=== PATIENT | male | born 1940 | race Caucasian/White ===

== ENCOUNTER 2018-03-04 19:03 | Inpatient (IN) | payer MEDICARE ==
[2018-03-04 21:20] LABS: Troponin I Less than 0.010 ng/mL (< 0.028)
[2018-03-04] MEDS ORDERED: Ondansetron HCl/PF 4 MG/2 ML Vial IVP PRN (22:06)
[2018-03-04] MEDS ORDERED: Ondansetron ODT 4 MG TAB SL PRN (22:06)
[2018-03-04] MEDS ORDERED: Acetaminophen 325 MG TAB PO PRN (22:06)
[2018-03-04 23:18] LABS: Troponin I Less than 0.010 ng/mL (< 0.028)
[2018-03-05] MEDS ORDERED: HumaLOG 300 UNITS/3 ML VIAL SC PRN ×2 (03:28)
[2018-03-05] MEDS ORDERED: Insulin Regular 300 UNITS/3 ML VIAL SC PRN (03:28)
[2018-03-05] MEDS ORDERED: Dextrose 5% in Water 1,000 ML IV PRN (03:28)
[2018-03-05] MEDS ORDERED: Dextrose 50% Abboject 50 ML SYRINGE SLOW IVP PRN (03:28)
[2018-03-05] MEDS ORDERED: Mag-Al 1200 mg/1200 mg/30 ML UDCUP PO PRN (03:29)
[2018-03-05] MEDS ORDERED: Acetaminophen 325 MG TAB PO PRN (03:29)
[2018-03-05] MEDS ORDERED: Senokot 8.6 MG TAB PO PRN (03:29)
[2018-03-05] MEDS ORDERED: traMADol HCl 50 MG TAB PO PRN (03:29)
[2018-03-05] MEDS ORDERED: Loratadine 10 MG TAB PO PRN (03:29)
[2018-03-05] MEDS ORDERED: cloNIDine 0.1 MG TAB PO PRN (03:29)
[2018-03-05] MEDS ORDERED: hydrALAZINE 20 MG/ML VIAL SLOW IVP PRN (03:29)
[2018-03-05] MEDS ORDERED: Benzonatate 100 MG CAP PO PRN (03:29)
[2018-03-05] MEDS ORDERED: Diabetic Tussin 200 MG/10 ML UDCUP PO PRN (03:29)
[2018-03-05] MEDS ORDERED: Calcium Carbonate 500 MG ChewTAB PO PRN (03:29)
[2018-03-05] MEDS ORDERED: Nitroglycerin 0.4 MG TAB (25 Tab Bottle) SL PRN (03:29)
[2018-03-05] MEDS ORDERED: Bisacodyl 5 MG TAB PO PRN (03:29)
[2018-03-05] MEDS ORDERED: Ondansetron HCl/PF 4 MG/2 ML Vial IVP PRN (03:29)
[2018-03-05] MEDS: Sodium Chloride 0.9% 1,000 ML IV SCH ×3 (03:55→21:12)
[2018-03-05] MEDS: cefTRIAXone\\ROCEPHIN 1 GM in Sodium Chloride 0.9% 100 ML IVPB SCH (04:02)
[2018-03-05] MEDS ORDERED: Pioglitazone HCl 15 MG TAB PO SCH (09:00)
[2018-03-05] MEDS: Aspirin 81 mg Enteric Coated Tablet PO SCH (09:52)
[2018-03-05] MEDS: Ferrous Gluconate 324 MG TAB PO SCH ×2 (09:52→21:11)
[2018-03-05] MEDS: Carvedilol 25 MG TAB PO SCH ×2 (09:53→21:11)
[2018-03-05] MEDS: Clopidogrel Bisulfate 75 MG TAB PO SCH (09:53)
[2018-03-05 13:39] LABS: Anion Gap 12 mmol/L (10-20); BUN (Urea Nitrogen) 19 mg/dL (8.4-25.7); Calc. Creatinine Clearance 43 mL/min (70-130); Calcium 8.3 mg/dL (7.8-10.44); Carbon Dioxide 23 mmol/L (23-31); Chloride 108 mmol/L (98-107); Estimated GFR-MDRD 40; Glucose 114 mg/dL (83-110); Sodium 139 mmol/L (136-145)
[2018-03-05 16:43] VITALS: BMI 31.3
--- NOTE | 2018-03-05 17:47 | HP ---
CHIEF COMPLAINT: General weakness, diarrhea. HISTORIAN: The patient and patient's daughter, reliable. HISTORY OF PRESENT ILLESS: This is a 77-year-old male who presented to [facility] via transfer from [facility] [address] with chief complaint of generalized weakness and diarrhea in the past 3 days. Per the patient, he had nonbloody diarrhea and had about 3 bouts of diarrhea. The patient also states that he had 1 episode of nonbloody vomitus. Per daughter, the patient was having subjective fevers as well and this prompted the ED visit. The patient denies any hematochezia, chest pain, palpitations, dizziness, dysuria. REVIEW OF SYSTEMS: Positive for diarrhea and vomiting; however, negative for all other ones stated in the HPI and documented. PAST MEDICAL HISTORY: The patient has past medical history of coronary artery disease, diabetes mellitus type 2, hyperlipidemia, hypertension. PAST SURGICAL HISTORY: Cardiac stents in 2016, hernia repair x6 and right shoulder repair. SOCIAL HISTORY: The patient denies alcohol use. The patient denies any illicit drug use. The patient denies any smoking history. FAMILY HISTORY: Patients mom and dad . ALLERGIES: No known drug allergies noted. PSYCH HISTORY: The patient does not have any psych history. MEDICATIONS: The patient takes, 1. Lasix 20 mg daily. 2. Lisinopril once a day 20 mg. 3. Plavix 75 mg once a day. 4. Trulicity 0.75 mg/0.5 mL. 5. Ferrous gluconate b.i.d. 6. Aspirin 81 mg daily. 7. Atorvastatin 40 mg daily. 8. Carvedilol 25 mg b.i.d. 9. Pantoprazole 40 mg b.i.d. 10. Pioglitazone 15 mg daily. PRIMARY CARE PHYSICIAN: The patient's PCP is Dr. German Richard. CODE STATUS: The patient is full code. PHYSICAL EXAMINATION: VITAL SIGNS: In the ED, the patient's vital signs were blood pressure was 125/ 56, pulse was 83, respiratory rate of 16, temperature of 99, O2 sat of 98 on 2 liters oxygen. On admission, the patient's blood pressure was 136/66, pulse of 93, respiratory rate of 18, temperature of 99.2, O2 sat of 96% on room air. GENERAL: The patient is lying in bed comfortably. He does not appear to be in any acute distress. The patient appears his stated age. HEENT: Normocephalic, atraumatic. Pupils are equally round and reactive to light. Extraocular movements are intact. No scleral icterus. Mucous membranes are moist. NECK: No JVD. Full range of motion. Trachea is midline. LUNGS: Clear to auscultation bilaterally. No wheezing, no rales, no rhonchi is appreciated. CARDIOVASCULAR: Positive S1, S2. Regular rate and rhythm. No murmurs, no rubs , no gallops appreciated. ABDOMEN: Soft, nontender, nondistended. Positive bowel sounds in all quadrants. No masses appreciated. EXTREMITIES: Upper extremities and lower extremities, the patient has 5/5 upper extremities strength and 5/5 lower extremities strength. The patient has SCDs attached to his lower extremities pulses bilaterally. NEUROLOGIC: Cranial nerves II-XII grossly intact. No focal neurologic deficits noted. SKIN: Warm, dry and intact. PSYCHIATRIC: Normal affect. LABORATORY DATA: Lactic acid is 1.5. Troponin is 0.010. WBC 7.9, hemoglobin is 11.6, hematocrit is 31.4, platelets of 117,000. Sodium is 139, potassium is 4.0, chloride is 108, bicarbonate 23, creatinine is 1.68, glucose is 114. Urinalysis positive for leukocyte esterase. ASSESSMENT AND PLAN: This is a 77-year-old male with multiple comorbidities being admitted for: 1. Diarrhea and vomiting, most likely secondary to viral gastritis. At this point, the patient states that his diarrhea has resolved. We have sent stool cultures to rule out Clostridium difficile. We will follow up on the cultures. We will continue IV fluids and we started antibiotics on the patient. 2. Urinary tract infection. The patient has a positive leukoesterase. We will continue the patient on antibiotics. We will await sensitivities and tailor antibiotics based on the sensitivities. 3. Acute kidney injury, most likely due to dehydration. We will continue gentle hydration for the patient and we will stay away from any nephrotoxic drugs. 4. Deep vein thrombosis and gastrointestinal prophylaxis. We will do SCDs and Pepcid. 5. Diabetes mellitus type 2. We will do insulin sliding scale. We will monitor glucose. 6. History of hypertension. Currently, the patient's blood pressure is controlled. We will monitor the patient's blood pressure closely and we will adjust antihypertensive medications as needed. This case has been dictated by Dr. Clint Gregory on patient Juan Lr. [facility]
--- NOTE | 2018-03-05 20:42 | CON ---
DATE OF CONSULTATION: 03/05/2018 CONSULTING PHYSICIAN: Dr. Gregory. REASON FOR CONSULTATION: Acute kidney injury. REASON FOR ADMISSION: Diarrhea. HISTORY OF PRESENT ILLNESS: This is a 77-year-old male with history of coronary artery disease, type 2 diabetes, hypertension, hyperlipidemia, who came to the hospital with diarrhea and was found to wise ve creatinine elevation and Nephrology is consulted. The patient is feeling better. He had a repeat creatinine, which is down today to 1.6. No fever, no chest pain reported to me. No nausea this mor paige and had few episode of vomiting before admission. PAST MEDICAL HISTORY: Positive for coronary artery disease, type 2 diabetes, hypertension, hyperlipi demia. PAST SURGICAL HISTORY: Hernia repair, cardiac stents. ALLERGIES: No known drug allergies. HOME MEDICATIONS: Lasix, lisinopril, Plavix, Trulicity, ferrous sulfate, aspirin, atorvastatin, carv edilol, pantoprazole, pioglitazone. SOCIAL HISTORY: No smoking, alcohol, or illicit drug abuse. FAMILY HISTORY: No history of any kidney disease. REVIEW OF SYSTEMS: The following complete review of systems was negative, unless otherwise mentioned in the HPI or below: Constitutional: Weight loss or gain, ability to conduct usual activities. Sk in: Rash, itching. Eyes: Double vision, pain. ENT/Mouth: Nose bleeding, neck stiffness, pain, te nderness. Cardiovascular: Palpitations, dyspnea on exertion, orthopnea. Respiratory: Shortness of breath, wheezing, cough, hemoptysis, fever or night sweats. Gastrointestinal: Poor appetite, abdom inal pain, heartburn, nausea, vomiting, constipation, or diarrhea. Genitourinary: Urgency, frequenc y, dysuria, nocturia. Musculoskeletal: Pain, swelling. Neurologic/Psychiatric: Anxiety, depressio n. Allergy/Immunologic: Skin rash, bleeding tendency. PHYSICAL EXAMINATION: GENERAL: This is an obese male, in no apparent distress. VITAL SIGNS: Temperature 98.1, pulse 77, respiratory rate 18, blood pressure 128/74. HEENT: Atraumatic, normocephalic. Oral mucosa is moist. NECK: Supple. No masses. CARDIOVASCULAR: S1, S2 heard. Rate and rhythm regular. RESPIRATORY: Clear. GASTROINTESTINAL: Abdomen is soft. MUSCULOSKELETAL: No tenderness. No edema. DERMATOLOGIC: No skin rash. NEUROLOGIC: Alert and awake. PSYCHIATRIC: Mood and affect normal. LABORATORY DATA: Potassium is 4.0, BUN is 19, creatinine is 1.6 from 2.1 on admission. ASSESSMENT AND PLAN: 1. Acute kidney injury. Renal function is getting better. Continue current management, continue IV fluids, avoid nephrotoxins and continue antibiotics. 2. Anemia, mild. 3. Edema, controlled. 4. Hypertension, stable. 5. Metabolic acidosis, better. 6. History of type 2 diabetes. 7. History of coronary artery disease. Renal function is better. We will follow. Avoid nephrotoxins. Thank you for the consult.
[2018-03-05] MEDS ORDERED: Famotidine 20 MG TAB PO SCH (21:00)
[2018-03-05] MEDS ORDERED: Atorvastatin Calcium 40 MG TAB PO SCH (21:00)
[2018-03-06] MEDS: cefTRIAXone\\ROCEPHIN 1 GM in Sodium Chloride 0.9% 100 ML IVPB SCH (04:46)
[2018-03-06 05:17] LABS: ALT (SGPT) 10 U/L (8-55); AST (SGOT) 13 U/L (5-34); Alkaline Phosphatase 55 U/L (40-150); Anion Gap 10 mmol/L (10-20); BUN (Urea Nitrogen) 16 mg/dL (8.4-25.7); Bilirubin, Total 0.6 mg/dL (0.2-1.2); Calc. Creatinine Clearance 51 mL/min (70-130); Carbon Dioxide 21 mmol/L (23-31); Chloride 110 mmol/L (98-107); Estimated GFR-MDRD 46; Globulin 2.2 g/dL (2.4-3.5); Glucose 117 mg/dL (83-110); Potassium 3.7 mmol/L (3.5-5.1); Protein, Total 5.2 g/dL (5.8-8.1); Sodium 137 mmol/L (136-145)
[2018-03-06 05:23] LABS: #Eosinphils 0.3 thou/uL (0.0-0.7); #Lymphocytes 0.8 thou/uL (1.20-3.40); #Monocytes 0.3 thou/uL (0.11-0.59); #Neutrophils 2.1 thou/uL (1.40-6.50); %Basophils 0.5 % (0.0-1.0); %Monocytes 9.9 % (0.0-10.0); %Neutrophils 59.5 % (42.0-75.0); Mean Corpuscular HGB CONC 33.6 g/dL (32.0-36.0); Mean Corpuscular Hemoglobin 34.6 pg (27.0-31.0); Mean Platelet Volume 6.8 fL (7.4-10.4); Platelet Count 105 thou/uL (130-400); RBC Distribution Width 12.9 % (11.5-14.5); Red Blood Cell (RBC) Count 2.61 mill/uL (4.70-6.10); White Blood Cell (WBC) Count 3.5 thou/uL (4.8-10.8)
[2018-03-06] MEDS: Aspirin 81 mg Enteric Coated Tablet PO SCH (08:32)
[2018-03-06] MEDS: Ferrous Gluconate 324 MG TAB PO SCH (08:33)
[2018-03-06] MEDS: Clopidogrel Bisulfate 75 MG TAB PO SCH (08:33)
[2018-03-06] MEDS: Carvedilol 25 MG TAB PO SCH (08:33)
[2018-03-06] MEDS ORDERED: Enoxaparin Sodium 30 MG/0.3 ML SYRINGE SC SCH (09:00)
[2018-03-06] MEDS: Sodium Chloride 0.9% 1,000 ML IV SCH (09:40)
[2018-03-06 11:15] VITALS: TEMP 98.3
--- NOTE | 2018-03-06 12:46 | PRG ---
DATE OF SERVICE: 03/06/2018 SUBJECTIVE: This is a 77-year-old gentleman being seen for acute kidney injury. The patient denies any nausea, vomiting, or chest pain. PHYSICAL EXAMINATION: GENERAL: Patient is awake and alert. VITAL SIGNS: Afebrile, 64, breathing 16, blood pressure 160/70. OBJECTIVE: See above. Awake, alert, in no acute distress. GENERAL APPEARANCE AND MENTAL STATUS: Fair. HEAD/NECK: Normocephalic. Atraumatic. EYES: EOMI. No deformity. EARS: Clear. No ulcers. NOSE: Intact. No lesions. MOUTH: Clear. No discharge. THROAT: Clear. No exudate. LUNGS: Clear. No crackles. CARDIAC: S1, S2. No rub. ABDOMEN: Benign. BS+. GENITALIA/RECTUM: Rangel absent. BACK/EXTREMITIES: Edema 0+ Ulcer- NEUROLOGICAL: Alert and motor intact. SKIN: Rash- Bruise- LYMPHATICS: Edema- Ulcer- LABORATORY: Hemoglobin 9, creatinine 1.4. ASSESSMENT: 1. Acute kidney injury, improved. 2. Hypertension, stable. 3. Anemia, stable. 4. Chronic kidney disease stage 3, stable. No indication for dialysis. The patient will follow up in the outpatient clinic.
[2018-03-06 14:24] VITALS: BP 146/83
--- NOTE | 2018-03-06 23:38 | DIS ---
HISTORY: On the day of discharge, the patient was seen and examined by me. The patient was progress ing well. Patient did not have any complaints. Patient is lying in bed, not in acute distress. DISCHARGE DIAGNOSES: 1. Diarrhea and vomiting, most likely secondary to viral gastritis. 2. Urinary tract infection. 3. Acute on chronic kidney injury. 4. Diabetes mellitus type 2. 5. Hypertension. HISTORY OF PRESENT ILLNESS: This is a 77-year-old male who presented to [facility] fo r chief complaint of generalized weakness, diarrhea, and vomiting. This patient was then admitted fo r diarrhea and vomiting, most likely due to viral gastritis. Patient also had positive urinalysis. The patient was started on IV antibiotics and labs were drawn to be followed up on. All cultures zacarias t were drawn for the patient came back negative. Patient felt well the next morning, the patient was discharged home. DISCHARGE DISPOSITION: The patient was discharged home in good and stable condition. DISCHARGE MEDICATIONS: Can be referred to electronic medical records for discharge medications. Discharge encounter took about 35 minutes to discharge the patient. This dictation was done by Dr. Clint Gregory on patient, Juan Lr.
[2018-03-10] MEDS ORDERED: (Dulaglutide [Trulicity] 0.5 ML) SC SCH (09:00)
== END 2018-03-06 14:34 | disposition home or self-care (01) | DRG 683 ==
LOC: ERS 19:03 → T4-B 21:41
PROVIDERS: ADMIT Internal Medicine; ATTEND Internal Medicine
DX: N17.9 Acute kidney failure, unspecified (principal); E87.2 Acidosis; N39.0 Urinary tract infection, site not specified; A08.4 Viral intestinal infection, unspecified; I12.9 Hypertensive chronic kidney disease with stage 1 through stage 4 chronic kidney disease, or unspecified chronic kidney disease; E11.22 Type 2 diabetes mellitus with diabetic chronic kidney disease; N18.3 Chronic kidney disease, stage 3 (moderate); D63.1 Anemia in chronic kidney disease; E86.0 Dehydration; I25.10 Atherosclerotic heart disease of native coronary artery without angina pectoris; E78.5 Hyperlipidemia, unspecified; Z95.5 Presence of coronary angioplasty implant and graft; Z79.02 Long term (current) use of antithrombotics/antiplatelets; Z79.82 Long term (current) use of aspirin
CPT/HCPCS: 36415; 36416; 80048; 80053; 83605; 83630; 85025; 87045; 87046; 87324; 87449; 87899; 96360; A4216; G8978-GP-CI; G8979-GP-CI; G8980-GP-CI; J0696; J1650; J7050

== ENCOUNTER 2020-04-03 19:37 | Inpatient (IN) | payer MEDICARE, OTHER ==
[2020-04-03 22:11] LABS: Troponin I 0.012 ng/mL (< 0.028)
[2020-04-03 22:45] LABS: SARS-CoV-2 NAA Rapid Test Not Detected (NotDetected)
--- NOTE | 2020-04-03 23:20 | PDOC.HHP ---
Hospitalist HPI - History of Present Illness General malaise, lost sense of taste History of Present Illness: PCP: Dr. Hampton The patient is an 80-year-old male with past medical history significant for CAD (1 stent), HTN, HLD, DMII and anemia that presents as a transfer from the [facility] via EMS for the above complaints. The patient reports losing his sense of taste 2 days ago and he worried that he might have COVID-19 infection. He reports some general malaise. He denies any trauma, headaches, difficulty speaking/swallowing or focal motor deficits. He denies chest pain, heart palpitations, swelling to lower extremities. Denies feeling short of breath, cough or wheezing. Denies abdominal pain, nausea, vomiting or diarrhea. Denies any dysuria, urinary frequency or urgency. Denies fever or chills. ED Course: [facility] Presented febrile 101.7F, tachycardic pulse 98, tachypneic respirations 34, Spo2 93% RA, with normal BP EKG NSR PVCs, CXR negative for acute process WBC 5.9, LA 1.8 Trops negative, BNP 60.1 Covid negative, blood and urine cx pending Medication administration: 2L NS Acetaminophen 1gm Regular insulin 6 units [place] [facility]: VITAL SIGNS Samantha Apr 03, 2020 19:43 ALLEN Fuentes Brianna BP: 145/75, Pulse: 87, Resp: 20, Temp: 98.5 (Oral), Pain: 0, O2 sat: 95 on ( Room Air), Time: 04/03/2020 19:43. VITAL SIGNS Samantha Apr 03, 2020 20:46 ALLEN Dewey Sarah BP: 137/80, Pulse: 86, Resp: 20, Pain: 0, O2 sat: 95 on (Room Air), Time: 2019 20:46. VITAL SIGNS Samantha Apr 03, 2020 21:30 ALLEN Fuentes Brianna BP: 131/86, Pulse: 91, Resp: 20, Temp: 98.5 (Oral), Pain: 0, O2 sat: 95 on ( Room Air), Time: 04/03/2020 21:30. VITAL SIGNS [facility] Apr 03, 2020 22:30 ALLEN Fuentes Brianna BP: 138/70, Pulse: 88, Resp: 20, Temp: 98.5 (Oral), Pain: 0, O2 sat: 96 on ( Room Air), Time: 04/03/2020 22:30. Hospitalist ROS - Review of Systems Constitutional: reports: weakness (generalized), malaise Eyes: denies: pain, conjunctivae inflammation ENT: denies: ear pain, nose discharge, throat pain Respiratory: denies: cough, shortness of breath, sputum Cardiovascular: denies: chest pain, palpitations, edema Gastrointestinal: denies: nausea, vomiting, abdominal pain, diarrhea, melena, hematochezia Genitourinary: denies: dysuria, frequency, hematuria Musculoskeletal: denies: neck pain Skin: denies: rash, bruising Neurological: denies: numbness, change in speech, confusion Other: loss of taste All other systems reviewed; all pertinent +/- noted in HPI/Subj - Medication Medications: Lasix oral TABLET : Strength - 20 mg : ORAL Patient Dose: once a day. lisinopril TABLET : Strength - 20 mg : ORAL Patient Dose: once a day. Plavix TABLET : Strength - 75 mg : ORAL Patient Dose: once a day. TrLuminetx PEN INJECTOR (ML) : Strength - 0.75 mg/0.5 mL : [0.5 mL(s)] : SUBCUTANEOUS Patient Dose: Unknown. ferrous gluconate TABLET : Strength - 324 mg (36 mg iron) : ORAL Patient Dose: 2 times a day. aspirin oral TABLET : Strength - 81 mg : ORAL Patient Dose: once a day. atorvastatin TABLET : Strength - 40 mg : ORAL Patient Dose: once a day. carvedilol TABLET : Strength - 25 mg : ORAL Patient Dose: 2 times a day. pantoprazole oral TABLET, DELAYED RELEASE (ENTERIC COATED) : Strength - 40 mg : ORAL Patient Dose: 2 times a day Allergies: NKDA Hospitalist History - Past Medical History Source: patient, RN notes reviewed Other Medical History: MEDICAL HISTORY Past medical history includes cardiac history, coronary artery disease, Past medical history includes history of diabetes (insulin dependent), Past medical history includes history of hyperlipidemia, high cholesterol, Past medical history includes history of hypertension. Anemia. GERD. MALE SURGICAL HISTORY cardiac stent (1), hernia repair x 6, right shoulder & left shoulder. PSYCHIATRIC HISTORY No previous psychiatric history, no history of suicidal ideations, No history of homicidal ideations. SOCIAL HISTORY Patient denies alcohol use, Patient denies drug use, Patient has no smoking history. Lives with daughter at home. 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 Ambulates with cane. FAMILY HISTORY non contributory for cardiac or pulmonary disease - Exam General Appearance: NAD, awake alert Eye: PERRL, anicteric sclera ENT: normocephalic atraumatic Neck: supple, symmetric, no JVD Heart: RRR, no murmur, no gallops, no rubs, normal peripheral pulses Respiratory: CTAB, no wheezes, no rales, no ronchi, normal chest expansion, no tachypnea Gastrointestinal: soft, non-tender, normal bowel sounds, no guarding, no rigidity Extremities: no cyanosis, no edema Skin: no rashes Neurological: cranial nerve grossly intact, normal sensation to touch, no weakness, no focal deficits Musculoskeletal: normal tone, normal strength Psychiatric: normal affect, A&O x 3 Hospitalist Results - Labs Lab results: Troponin I 0.012 ng/mL (< 0.028) 04/03/20 21:39 - EKG Interpretation EK lead EKG shows normal sinus rhythm, Rate (beats per minute): 87, with no ectopics, Conduction normal, ST segments normal, T waves normal, [place] normal, no stemi. Accelerated junctional rhythm. - Radiology Interpretation Chest x-ray Status: report reviewed by mo Hospitalist H&P A/P - Problem (1) COVID-19 Code(s): U07.1 - COVID-19 Status: Acute Assessment and Plan: Suspected. Admit to telemetry floor, observation status, expected length of stay less than 2 midnights. Presented to [facility] febrile, tachycardic, tachypneic, with relative hypoxia and normal blood pressure. Reports loss sense of smell, general malaise. CXR no acute process, EKG NSR, Trop and BNP unremarkable. WBC 5.9, LA 1.8. UA 2 + bacteria, no leukocytes, WBCs, or nitrites. Received 2L NS, tylenol qram at [place] [facility] On exam, VSS on 2L NC. no acute distress. Isolation precautions, CT chest, check acute phase reactants. Start rocephin and azithromycin, zinc and Vit C. Supplemental oxygen. (2) SIRS (systemic inflammatory response syndrome) Code(s): R65.10 - SIRS OF NON-INFECTIOUS ORIGIN W/O ACUTE ORGAN DYSFUNCTION Status: Acute Assessment and Plan: No definitive infectious source, likely secondary to problem #1. (3) Hyperglycemia Code(s): R73.9 - HYPERGLYCEMIA, UNSPECIFIED Status: Acute Assessment and Plan: Presented with BG 323, UA negative for ketones, GAP closed, LA 1.8. Given 6 units regular insulin at [facility]. Will perform AC/HS checks, moderate sliding scale. Will continue home dose of lantus 30 q hs. Will hold trulicity for now. (4) CKD (chronic kidney disease), stage IV Code(s): N18.4 - CHRONIC KIDNEY DISEASE, STAGE 4 (SEVERE) Status: Chronic Assessment and Plan: Creatinine 2.34 and GFR 27, appears baseline. Will continue to monitor. (5) CAD (coronary artery disease) Code(s): I25.10 - ATHSCL HEART DISEASE OF [place] CORONARY ARTERY W/O ANG PCTRS Status: Chronic Assessment and Plan: HX stent x 1. Patient denies CP, heart palpitations. EKG NSR, no ST elevation, Troponins negative x 2. BNP 60.1. CXR unremarkable. Will trend troponins. Will continue home dose ASA and plavix. (6) Anemia Code(s): D64.9 - ANEMIA, UNSPECIFIED Status: Chronic Assessment and Plan: chronic, stable. Will restart home dose of ferrous gluconate. - Plan Plan: Heparin for DVT prophylaxis. Protonix for GI prophylaxis. Full code. surrogate decision maker is daughter, Leatha Underwood. Discussed case with Dr. Brower.
[2020-04-03] MEDS ORDERED: Azithromycin 500 MG in Syringe 0 ML IVPB ONE (23:45)
[2020-04-04] MEDS ORDERED: HumaLOG 300 UNITS/3 ML VIAL SC PRN (00:06)
[2020-04-04] MEDS ORDERED: Dextrose 5% in Water 1,000 ML IV PRN (00:06)
[2020-04-04] MEDS ORDERED: Dextrose 50% Abboject 50 ML SYRINGE SLOW IVP PRN (00:06)
[2020-04-04] MEDS ORDERED: cefTRIAXone\\ROCEPHIN 1 GM in Sodium Chloride 0.9% 100 ML IVPB SCH ×2 (00:15→21:00)
[2020-04-04] MEDS ORDERED: Acetaminophen 650 MG Suppository PR PRN (00:25)
[2020-04-04] MEDS ORDERED: Calcium Carbonate 500 MG ChewTAB PO PRN (00:25)
[2020-04-04] MEDS ORDERED: Ondansetron PF 4 MG/2 ML Vial IVP PRN (00:25)
[2020-04-04] MEDS ORDERED: Ondansetron ODT 4 MG TAB PO PRN (00:25)
[2020-04-04] MEDS ORDERED: Acetaminophen 325 MG TAB PO PRN (00:25)
[2020-04-04] MEDS ORDERED: Senokot S 8.6-50 MG TAB PO PRN (00:25)
[2020-04-04] MEDS ORDERED: Azithromycin 500 MG in Sodium Chloride 0.9% 250 ML 250 ML IVPB SCH ×3 (01:00→22:00)
[2020-04-04 01:29] LABS: Troponin I 0.023 ng/mL (< 0.028)
[2020-04-04 01:50] LABS: Thyroid Stimulating Hormone 4.1754 uIU/mL (0.35-4.94)
[2020-04-04] MEDS: Sodium Chloride 0.9% 1,000 ML IV SCH ×2 (01:51→16:34)
[2020-04-04 03:45] LABS: Ferritin 296.2 ng/mL (22-322)
[2020-04-04 05:34] LABS: #Lymphocytes 0.9 thou/uL (1.20-3.40); #Monocytes 0.5 thou/uL (0.11-0.59); #Neutrophils 2.6 thou/uL (1.40-6.50); %Basophils 0.3 % (0.0-1.0); %Eosinophils 0.9 % (0.0-10.0); %Lymphocytes 21.5 % (21.0-51.0); %Monocytes 11.5 % (0.0-10.0); %Neutrophils 65.8 % (42.0-75.0); Hemoglobin 11.8 g/dL (14.0-18.0); Mean Corpuscular HGB CONC 33.4 g/dL (32.0-36.0); Mean Corpuscular Hemoglobin 33.9 pg (27.0-31.0); Mean Platelet Volume 7.9 fL (7.4-10.4); Platelet Count 97 thou/uL (130-400); RBC Distribution Width 13.1 % (11.5-14.5); Red Blood Cell (RBC) Count 3.49 mill/uL (4.70-6.10)
[2020-04-04 05:40] LABS: Anion Gap 15 mmol/L (10-20); BUN (Urea Nitrogen) 33 mg/dL (8.4-25.7); Calc. Creatinine Clearance 35 mL/min (70-130); Calcium 7.9 mg/dL (7.8-10.44); Carbon Dioxide 15 mmol/L (23-31); Chloride 110 mmol/L (98-107); Estimated GFR-MDRD 33; Glucose 198 mg/dL (83-110); Potassium 3.8 mmol/L (3.5-5.1); Sodium 136 mmol/L (136-145)
[2020-04-04] MEDS: HumaLOG 300 UNITS/3 ML VIAL SC PRN ×3 (06:25→16:34)
[2020-04-04] MEDS: Ferrous Gluconate 324 MG TAB PO SCH ×2 (08:39→16:34)
[2020-04-04] MEDS ORDERED: Dulaglutide [Trulicity] 0.5 ML SC SCH ×6 (09:00→21:15)
[2020-04-04] MEDS ORDERED: Carvedilol 25 MG TAB PO SCH (09:00)
[2020-04-04] MEDS ORDERED: Aspirin 81 mg Enteric Coated Tablet PO SCH (09:00)
[2020-04-04] MEDS ORDERED: Zinc Sulfate 220 MG CAP PO SCH (09:00)
[2020-04-04] MEDS ORDERED: Clopidogrel Bisulfate 75 MG TAB PO SCH (09:00)
[2020-04-04] MEDS ORDERED: Ascorbic Acid 500 mg Chewable Tablet PO SCH (09:00)
[2020-04-04] MEDS ORDERED: Heparin 5,000 UNITS/ML VIAL SC SCH (09:00)
--- NOTE | 2020-04-04 09:29 | CT ---
CT CHEST WITHOUT CONTRAST: Date: 04/04/2020 INDICATION: Dyspnea. Technologist states patient has lost sense of taste. No comparison chest CT. Correlation made to chest film of 04/03/2020. FINDINGS: Lungs show no evidence of infiltrate. Mild pleural thickening in the posterior lung bases. Mild paren chymal stranding in the lung bases. There is a moderate sized fixed diaphragmatic hernia. Mediastinum is otherwise unremarkable. No adeno kaylen. Images through upper abdomen unremarkable. Review of osseous structures show displaced fractures involving posterior left 7th and 8th ribs. Thes e were described on yesterday's chest film. No definite callus is seen, although these are probably n ot acute. Recommend clinical correlation. IMPRESSION: 1. No acute lung infiltrate. 2. 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 3. Mildly displaced posterior left rib fractures as noted above. POS: AGW
--- NOTE | 2020-04-04 10:06 | ULT ---
BILATERAL LOWER EXTREMITY VENOUS DOPPLER EVALUATION PROVIDED CLINICAL HISTORY: Rule out DVT; dyspnea TECHNIQUE: Grayscale, color doppler and spectral doppler images were obtained of the common femoral , femoral, profunda femoral, popliteal and posterior tibial veins of both lower extremities. FINDINGS: There is normal compression, flow and augmentation seen with the deep venous structures within both l ower extremities. IMPRESSION: No sonographic evidence for lower extremity deep venous thrombosis.
[2020-04-04 12:45] LABS: SARS-CoV-2 MS2 Positive; SARS-CoV-2 N Gene Negative; SARS-CoV-2 S Gene Negative; SARS-CoV-2 by NAA Not Detected (NotDetected); SARS-CoV-2 orf1ab Negative
--- NOTE | 2020-04-04 16:25 | MRI ---
MRI brain noncontrast HISTORY: Headache. Ataxia. FINDINGS: No comparison. There is no evidence of acute intracranial hemorrhage or infarct. Mild diffuse cortical atrophy. Prominent chronic ischemic small vessel disease throughout the periventricular white matter of each c erebral hemisphere. There is no mass effect or shift of midline structures. IMPRESSION : Chronic-type findings. No acute intracranial abnormalities are demonstrated.
--- NOTE | 2020-04-04 17:44 | PDOC.EVN ---
Event Note - Event Note Event Note: Chart reviewed, patient seen. States he feels better. VSS. S1, S2, reg. Lungs CTA. Source of infection unclear at this time, continue antibiotics. Estimated length of stay greater than two midnights, change status to Inpatient.
--- NOTE | 2020-04-04 20:29 | CON ---
DATE OF CONSULTATION: 04/04/2020 REASON FOR CONSULTATION: Lack of smell sensation, dizziness, and concern with COVID infection. HISTORY OF PRESENT ILLNESS: An 80-year-old, history of coronary artery disease, type 2 diabetes, hyperlipidemia, and hypertension, who has had loss of smell sensation and taste for the past 3 days. He also noticed dizziness and unsteadiness of gait. He could not get up and walk because of that. To me, he did not report any fever, but in the emergency room note, the fever has been reported. The patient has had some intermittent headaches. No visual symptoms, sore throat, odynophagia, or dysphagia. No cough, sputum production, or chest pain. No dyspnea. No abdominal pain or diarrhea. No genitourinary symptoms. No joint symptoms. PAST MEDICAL HISTORY: Coronary artery disease, type 2 diabetes, hyperlipidemia , and hypertension. PAST SURGICAL HISTORY: Cardiac stent, hernia repair, and shoulder repair on left side x1. SOCIAL HISTORY: Lives in [place] with his daughter. The daughter works in a plant. Never smoker. No alcoholic beverage use. ALLERGIES: NONE. MEDICATIONS LIST: 1. Vitamin C. 2. Lipitor. 3. Azithromycin. 4. Ceftriaxone. 5. Insulin. 6. Ondansetron. PHYSICAL EXAMINATION: VITAL SIGNS: He was 101.7 at the emergency room and has defervesced since. Heart rate 70, respiratory rate 18, O2 saturations were 95% to 96% on room air. GENERAL: He still does not have any sensation of smell or taste. He is still with headaches, dizziness, and inability to ambulate. SKIN: Normal. LYMPHATICS: There is no lymphadenopathy. HEENT: Ocular movements are conjugate. No nystagmus. Oral cavity is not remarkable. NECK: Supple. LUNGS: Symmetric. Clear breath sounds. HEART: S1 and S2. Regular rate. No S3 or S4. ABDOMEN: Soft. Not distended or tender. No ascites. No bladder distention. NEUROLOGIC: He is able to move all 4 extremities. He has quite a bit of dysmetria in the [id number] test more on the right than the left side. Left side has range of motion limitation because of his prior shoulder surgeries. His pulses are 1+ in dorsalis pedis. Plantar responses are flexor. He knows his name and where he is. Speech is a little bit slow, but he is able to answer questions appropriately. Recollection is not limited. LABORATORY DATA: White cell count 4.0, hemoglobin 11.8, MCV 101, platelets 97, 000, 65% neutrophils, 21% lymphocytes, total lymphocyte count 0.9. D-dimer 7.34. Creatinine is 1.97, which is actually lower than what his baseline was previously. Liver profile is within normal limits. Slight elevation in bilirubin at 1.3. Albumin 3.8, globulin 3.2. Urinalysis with no wbc's seen. He has 2 COVID tests , one done on April 03, which is negative, and another one on April 04, which was not detected either. He had a CT of chest performed, and this showed no lung infiltrates. Some of rib fractures noted. ASSESSMENT: Coronary artery disease, type 2 diabetes, new onset of anosmia associated with dizziness and headaches, and fever. The patient has had a normal CT of chest and 2 COVID tests negative, one on the day of admission and the second one the next day. The patient has normal O2 saturations on room air. DISCUSSION: The pre-test likelihood for COVID is intermediate around 40% to 50% , and with 2 tests, it brings down the post-test likelihood to less than 15%, probably less than 10% particularly in the face of a normal CT scan of chest. In view of the neurological symptoms, we will go ahead and scan his brain with MRI to rule out posterior fossa lesions and pituitary lesions as well. May need a CSF evaluation. The fever, pancytopenia would broaden the diff diagn to intra-cellular bacteria such as ehr lichia, ricketsia, bartonella as well as auto-immune process/vasculitis. Malignancy less likely. Considering switching to Doxycycline + serologies depending on MRI results. Job ID: [id number] [facility]
[2020-04-04] MEDS ORDERED: Azithromycin 500 MG in Syringe 0 ML IVPB SCH (21:00)
[2020-04-04] MEDS ORDERED: Atorvastatin Calcium 40 MG TAB PO SCH (21:00)
[2020-04-04] MEDS ORDERED: Non-Formulary Item 1 EACH (Insulin Glargine,Hum.Rec.Anlog [Basaglar Kwikpen U-100] 30 UNI SQ SCH (21:00)
[2020-04-04] MEDS ORDERED: Insulin Glargine 30 UNITS in Pre-Filled Syringe 1 EACH SC SCH (21:30)
[2020-04-05] MEDS ORDERED: Dextrose 50% Abboject 50 ML SYRINGE IVP PRN (12:26)
[2020-04-05] MEDS ORDERED: Dextrose 5% in Water 1,000 ML IV PRN (12:26)
--- NOTE | 2020-04-05 14:30 | RAD ---
TWO VIEW CHEST: 04/05/20 HISTORY: Shortness of breath. FINDINGS/IMPRESSION: Lungs appear clear. No infiltrate or vascular congestion. Heart and mediastinum unremarkable. Displaced left posterior rib fractures noted and described on recent CT. POS: AGW
--- NOTE | 2020-04-05 14:35 | NM ---
LUNG SCAN: 04/05/20 Perfusion only lung scan performed by administration of 5 millicuries of technetium labeled MAA. The lungs were imaged in eight projections. Correlation made to chest film and to recent CT chest. FINDINGS: There is normal perfusion bilaterally. IMPRESSION: No evidence of pulmonary embolus. Normal perfusion. POS: AGW
[2020-04-05] MEDS: HumaLOG 300 UNITS/3 ML VIAL SC PRN ×2 (17:23→20:53)
[2020-04-05] MEDS: Acetaminophen 325 MG TAB PO PRN (17:23)
[2020-04-05] MEDS ORDERED: Loperamide HCl 2 MG CAP PO PRN (17:47)
[2020-04-05] MEDS: Atorvastatin Calcium 40 MG TAB PO SCH (20:53)
[2020-04-05] MEDS: Insulin Glargine 30 UNITS in Pre-Filled Syringe 1 EACH SC SCH (20:54)
[2020-04-05] MEDS ORDERED: cefTRIAXone\\ROCEPHIN 1 GM in Sodium Chloride 0.9% 100 ML IVPB SCH (21:00)
[2020-04-05] MEDS ORDERED: Insulin Glargine 30 UNITS in Pre-Filled Syringe 1 EACH SC SCH (21:00)
--- NOTE | 2020-04-05 23:20 | PDOC.HOSPP ---
- Subjective Encounter Date: 04/05/20 Encounter Time: 10:00 Subjective: no overnight events. this morning, feeling well, smell and taste improving, and has no complaints. - Objective Vital Signs & Weight: Vital Signs (12 hours) Temp Pulse Resp BP BP Pulse Ox 04/05/20 19:15 98.6 F 63 16 128/58 L 95 04/05/20 16:07 97.2 F L 62 16 160/72 H 95 Weight Weight 180 lb 12.465 oz I&O: 04/04/20 04/05/20 04/06/20 06:59 06:59 06:59 Intake Total 460 1174 710 Output Total 250 325 825 Balance 210 849 -115 Result Diagrams: 04/04/20 04:40 04/04/20 04:40 Additional Labs: Accuchecks 04/05/20 04/05/20 04/05/20 20:42 17:09 11:21 POC Glucose 235 H 177 H 239 H 04/05/20 04/04/20 06:06 21:35 POC Glucose 128 H 107 Hospitalist ROS - Review of Systems Constitutional: denies: chills, sweats Respiratory: denies: cough, shortness of breath, pleuritic pain, sputum Cardiovascular: denies: chest pain, palpitations Gastrointestinal: denies: nausea, vomiting, abdominal pain, diarrhea Genitourinary: denies: dysuria, hematuria - Medication Medications: Active Medications Generic Name Dose Route Start Last Admin Trade Name Freq PRN Reason Stop Dose Admin Acetaminophen 650 mg 04/05/20 16:02 04/05/20 17:23 Tylenol PO 650 mg Q6H PRN Administration Headache Atorvastatin Calcium 40 mg 04/05/20 21:00 04/05/20 20:53 Lipitor PO 40 mg HS GORDO Administration Insulin Glargine 30 units/ 0.3 mls @ 0 mls/hr 04/05/20 21:00 04/05/20 20:54 Miscellaneous Medication SC 0.3 mls HS GORDO Administration Insulin Human Lispro 0 units 04/05/20 12:26 04/05/20 17:23 Humalog SC 2 unit .MILD SLIDING SCALE PRN Administration MILD SLIDING SCALE Protocol Insulin Human Lispro 0 units 04/05/20 12:26 04/05/20 20:53 Humalog SC 2 unit .BEDTIME SLIDING SC PRN Administration BEDTIME SLIDING SCALE Protocol Sodium Chloride 10 ml 04/05/20 21:00 04/05/20 20:54 Flush - Normal Saline IVF 10 ml Q12HR GORDO Administration - Exam General Appearance: negative: NAD, awake alert Neck: negative: no JVD Heart: negative: RRR, no gallops, no rubs Respiratory: negative: CTAB, no wheezes, no rales, no ronchi Gastrointestinal: negative: soft, non-tender, non-distended, normal bowel sounds Psychiatric: normal affect, normal behavior, A&O x 3 Hosp A/P - Plan #pancytopenia -COVID -ve; viral panel -ve -afebrile as inpatient; Chest CT and CXR showing no acute cardiopulmonary process -considering positive fluid balance and occurence of pancytopenia as inpatient ( decrease in three cell lines), no symptoms or signs of infection, may be dilutional -elevated MCV -per radiology, no ventilation scans permitted; perfusion scan -ve for perfusion defect -peripheral smear; reticulocyte count, folate -defer additional infectious workup to infectious disease full code ELOS: 1-2 nights
[2020-04-06 05:20] LABS: Reticulocyte Count 1.8 % (0.5-1.5)
[2020-04-06 05:39] LABS: Band 2 % (5-11); Eosinophils 8 % (0-10); Hemoglobin 11.5 g/dL (14.0-18.0); Lymphocytes 43 % (21-51); MDiff Complete? YES; Mean Corpuscular HGB CONC 34.9 g/dL (32.0-36.0); Mean Corpuscular Hemoglobin 34.6 pg (27.0-31.0); Mean Platelet Volume 7.7 fL (7.4-10.4); Monocytes 6 % (0-10); Platelet Count 93 thou/uL (130-400); Platelet Morphology Comment Appears Decreased; RBC Distribution Width 12.6 % (11.5-14.5); Red Blood Cell (RBC) Count 3.32 mill/uL (4.70-6.10); White Blood Cell (WBC) Count 3.3 thou/uL (4.8-10.8)
[2020-04-06 05:42] LABS: Anion Gap 11 mmol/L (10-20); BUN (Urea Nitrogen) 25 mg/dL (8.4-25.7); Calc. Creatinine Clearance 41 mL/min (70-130); Calcium 8.3 mg/dL (7.8-10.44); Carbon Dioxide 20 mmol/L (23-31); Chloride 111 mmol/L (98-107); Estimated GFR-MDRD 40; Glucose 154 mg/dL (83-110); Magnesium 1.9 mg/dL (1.6-2.6); Neutrophil 40 % (42-75); Potassium 3.7 mmol/L (3.5-5.1); Sodium 138 mmol/L (136-145)
[2020-04-06] MEDS: HumaLOG 300 UNITS/3 ML VIAL SC PRN ×2 (06:05→20:47)
--- NOTE | 2020-04-06 16:25 | PDOC.HOSPP ---
- Subjective Encounter Date: 04/06/20 Encounter Time: 09:00 Subjective: overnight, several SA exit blocks, asymptomatic. This morning, Mobitz Type II. patient remains asymptomatic. EP consulted. - Objective Vital Signs & Weight: Vital Signs (12 hours) Temp Pulse Resp BP Pulse Ox 04/06/20 15:44 97.4 F L 16 L 16 157/70 H 96 04/06/20 12:00 98.1 F 55 L 16 148/65 H 96 04/06/20 08:00 97.8 F 56 L 16 141/61 H 95 Weight Weight 180 lb 12.465 oz I&O: 04/05/20 04/06/20 04/07/20 06:59 06:59 06:59 Intake Total 1174 710 Output Total 325 825 Balance 849 -115 Result Diagrams: 04/06/20 05:03 04/06/20 05:03 Additional Labs: Accuchecks 04/06/20 04/06/20 04/05/20 10:51 05:59 20:42 POC Glucose 196 H 161 H 235 H 04/05/20 17:09 POC Glucose 177 H Hospitalist ROS - Review of Systems Constitutional: denies: chills, sweats Respiratory: denies: cough, shortness of breath, pleuritic pain Cardiovascular: denies: chest pain, palpitations, orthopnea Gastrointestinal: denies: nausea, vomiting, abdominal pain, diarrhea Genitourinary: denies: dysuria, frequency, hematuria - Medication Medications: Active Medications Generic Name Dose Route Start Last Admin Trade Name Freq PRN Reason Stop Dose Admin Acetaminophen 650 mg 04/05/20 16:02 04/05/20 17:23 Tylenol PO 650 mg Q6H PRN Administration Headache Atorvastatin Calcium 40 mg 04/05/20 21:00 04/05/20 20:53 Lipitor PO 40 mg HS GORDO Administration Insulin Glargine 30 units/ 0.3 mls @ 0 mls/hr 04/05/20 21:00 04/05/20 20:54 Miscellaneous Medication SC 0.3 mls HS GORDO Administration Insulin Human Lispro 0 units 04/05/20 12:26 04/06/20 06:05 Humalog SC 2 unit .MILD SLIDING SCALE PRN Administration MILD SLIDING SCALE Protocol Insulin Human Lispro 0 units 04/05/20 12:26 04/05/20 20:53 Humalog SC 2 unit .BEDTIME SLIDING SC PRN Administration BEDTIME SLIDING SCALE Protocol Sodium Chloride 10 ml 04/05/20 21:00 04/06/20 09:19 Flush - Normal Saline IVF Not Given Q12HR GORDO - Exam General Appearance: NAD, awake alert Eye: PERRL, anicteric sclera Neck: no JVD Heart: RRR, no murmur, no gallops, no rubs Respiratory: CTAB, no wheezes, no rales, no ronchi Gastrointestinal: soft, non-tender, non-distended, normal bowel sounds Extremities: no edema Psychiatric: normal affect, normal behavior, A&O x 3 Hosp A/P - Plan #SA exit block #Mobitz II -asymptomatic -restarted aspirin, plavix; holding coreg, trulicity -normal TSH, electrolytes -EP consulted -may require atropine and pacing if becomes unstable -if hypotensive or bleeding, stop plavix, give platelets #pancytopenia -COVID -ve; viral panel -ve -afebrile as inpatient; Chest CT and CXR showing no acute cardiopulmonary process -considering positive fluid balance and occurence of pancytopenia as inpatient ( decrease in three cell lines), no symptoms or signs of infection, may be dilutional -elevated MCV -per radiology, no ventilation scans permitted; perfusion scan -ve for perfusion defect -MRI showing chronic ischemic microvascular disease -low retic index -> hypoproliferation; normal folate -defer additional infectious workup to infectious disease full code ELOS: 1-2 nights
[2020-04-06] MEDS ORDERED: Aspirin 81 mg Enteric Coated Tablet PO SCH (16:30)
[2020-04-06] MEDS ORDERED: Clopidogrel Bisulfate 75 MG TAB PO SCH (17:00)
[2020-04-06] MEDS: Atorvastatin Calcium 40 MG TAB PO SCH (20:46)
[2020-04-06] MEDS: Insulin Glargine 30 UNITS in Pre-Filled Syringe 1 EACH SC SCH (20:46)
[2020-04-06] MEDS: Doxycycline 100 MG CAP PO SCH (20:46)
[2020-04-07 04:36] LABS: #Eosinphils 0.3 thou/uL (0.0-0.7); #Lymphocytes 1.2 thou/uL (1.20-3.40); #Monocytes 0.3 thou/uL (0.11-0.59); #Neutrophils 1.9 thou/uL (1.40-6.50); %Basophils 0.7 % (0.0-1.0); %Eosinophils 7.6 % (0.0-10.0); %Lymphocytes 31.4 % (21.0-51.0); %Monocytes 9.2 % (0.0-10.0); %Neutrophils 51.1 % (42.0-75.0); Hemoglobin 10.6 g/dL (14.0-18.0); Mean Corpuscular Hemoglobin 33.4 pg (27.0-31.0); Mean Corpuscular Volume 98.1 fL (78.0-98.0); Mean Platelet Volume 8.2 fL (7.4-10.4); Platelet Count 117 thou/uL (130-400); RBC Distribution Width 12.7 % (11.5-14.5); Red Blood Cell (RBC) Count 3.18 mill/uL (4.70-6.10); White Blood Cell (WBC) Count 3.7 thou/uL (4.8-10.8)
[2020-04-07 04:46] LABS: Anion Gap 12 mmol/L (10-20); BUN (Urea Nitrogen) 24 mg/dL (8.4-25.7); Calc. Creatinine Clearance 46 mL/min (70-130); Calcium 8.4 mg/dL (7.8-10.44); Carbon Dioxide 19 mmol/L (23-31); Chloride 111 mmol/L (98-107); Estimated GFR-MDRD 46; Glucose 136 mg/dL (83-110); Magnesium 1.8 mg/dL (1.6-2.6); Potassium 3.8 mmol/L (3.5-5.1); Sodium 138 mmol/L (136-145)
--- NOTE | 2020-04-07 08:05 | PRG ---
DATE OF SERVICE: 04/06/2020 SUBJECTIVE: Mr. Martinez looks like he is feeling back to normal. Normal odor sensation and able to taste food and no dyspnea. No cough. No abdominal pain or diarrhea. No genitourinary symptoms. No joint symptoms or skin disorder. He has been afebrile since admission. OBJECTIVE: VITAL SIGNS: BP 150/70, heart rate 55, respiratory rate 16, O2 saturation 96%. GENERAL: Oriented, in no distress. HEENT: Ocular movements conjugate. LUNGS: Symmetric, clear breath sounds. HEART: S1 and S2, regular rate. ABDOMEN: Soft. Not distended. EXTREMITIES: Moves extremities equally. No joint inflammatory process. LABORATORY DATA: White cell count is 3.3, hemoglobin 11.5, MCV 99, platelets 93 , 40% neutrophils. D-dimer 7.34. Creatinine 1.65. His nuclear medicine lung scan showed no evidence of pulmonary embolism, and brain MRI did not show any abnl other than periventricular white matter changes. ASSESSMENT AND DISCUSSION: Coronary artery disease, type 2 diabetes, new onset of anosmia associated with dizziness and headaches and fever. Normal CT of chest. Two COVID tests negative. The MRI did not show any evidence of cerebrovascular accident. The patient frequently stays at his daughter's farm and animals there. Sometimes he gets bitten by fleas, so the possibility of an intracellular bacteria is raised. Brucella will be another concern. We will go and check serologies and switch him to doxycycline. Follow up with CBC. 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 Myelodysplastic syndrome will be another concern as well. Job ID: [id number] [facility]
[2020-04-07 09:07] LABS: Reference Lab Name LABCORP
[2020-04-07 09:08] LABS: Ref Lab Test Ordered Q FEVER AB
[2020-04-07] MEDS: Aspirin 81 mg Enteric Coated Tablet PO SCH (09:24)
[2020-04-07] MEDS: Clopidogrel Bisulfate 75 MG TAB PO SCH (09:24)
[2020-04-07] MEDS: Doxycycline 100 MG CAP PO SCH ×2 (09:24→20:47)
--- NOTE | 2020-04-07 11:00 | PDOC.HOSPP ---
- Subjective Encounter Date: 04/07/20 Encounter Time: 09:00 Subjective: overnight, mobitz II and nonconductive PACs. This morning, has no complaints. pending EP eval - Objective Vital Signs & Weight: Vital Signs (12 hours) Temp Pulse Resp BP BP Pulse Ox 04/07/20 07:51 97.5 F L 60 16 146/63 H 60 L 04/07/20 04:26 96 04/07/20 04:00 97.8 F 62 18 131/60 94 L Weight Weight 180 lb 12.465 oz I&O: 04/06/20 04/07/20 04/08/20 06:59 06:59 06:59 Intake Total 710 1520 Output Total 825 1800 Balance -115 -280 Result Diagrams: 04/07/20 03:51 04/07/20 03:51 Additional Labs: Accuchecks 04/07/20 04/06/20 04/06/20 06:28 20:27 17:39 POC Glucose 131 H 210 H 191 H Hospitalist ROS - Review of Systems Constitutional: denies: chills, sweats Respiratory: denies: cough, shortness of breath Cardiovascular: denies: chest pain, palpitations, orthopnea Gastrointestinal: denies: nausea, vomiting, abdominal pain Genitourinary: denies: dysuria, incontinence, hematuria - Medication Medications: Active Medications Generic Name Dose Route Start Last Admin Trade Name Freq PRN Reason Stop Dose Admin Acetaminophen 650 mg 04/05/20 16:02 04/05/20 17:23 Tylenol PO 650 mg Q6H PRN Administration Headache Aspirin 81 mg 04/07/20 09:00 04/07/20 09:24 Ecotrin PO 81 mg DAILY GORDO Administration Atorvastatin Calcium 40 mg 04/05/20 21:00 04/06/20 20:46 Lipitor PO 40 mg HS GORDO Administration Clopidogrel Bisulfate 75 mg 04/07/20 09:00 04/07/20 09:24 Plavix PO 75 mg DAILY GORDO Administration Doxycycline Hyclate 100 mg 04/06/20 21:00 04/07/20 09:24 Vibramycin PO 100 mg BID GORDO Administration Insulin Glargine 30 units/ 0.3 mls @ 0 mls/hr 04/05/20 21:00 04/06/20 20:46 Miscellaneous Medication SC 0.3 mls HS GORDO Administration Insulin Human Lispro 0 units 04/05/20 12:26 04/06/20 06:05 Humalog SC 2 unit .MILD SLIDING SCALE PRN Administration MILD SLIDING SCALE Protocol Insulin Human Lispro 0 units 04/05/20 12:26 04/06/20 20:47 Humalog SC 2 unit .BEDTIME SLIDING SC PRN Administration BEDTIME SLIDING SCALE Protocol Isosorbide Mononitrate 60 mg 04/07/20 09:00 04/07/20 09:24 Imdur PO 60 mg DAILY GORDO Administration Sodium Chloride 10 ml 04/05/20 21:00 04/07/20 09:25 Flush - Normal Saline IVF 10 ml Q12HR GORDO Administration - Exam General Appearance: NAD, awake alert Neck: no JVD Heart: RRR, no murmur, no gallops, no rubs Heart - other findings: occasional skipped beats Respiratory: CTAB, no wheezes, no rales, no ronchi Gastrointestinal: soft, non-tender, non-distended, normal bowel sounds Hosp A/P - Plan #SA exit block #Mobitz II #nonconductive PACs -asymptomatic -normal TSH, electrolytes -continue aspirin, plavix; holding coreg, trulicity -EP consulted -may require atropine and pacing if becomes unstable -if hypotensive or bleeding, stop plavix, give platelets #pancytopenia -COVID -ve; viral panel -ve -afebrile as inpatient; Chest CT and CXR showing no acute cardiopulmonary process -considering positive fluid balance and occurence of pancytopenia as inpatient ( decrease in three cell lines), no symptoms or signs of infection, may be dilutional -elevated MCV -per radiology, no ventilation scans permitted; perfusion scan -ve for perfusion defect -MRI showing chronic ischemic microvascular disease -low retic index -> hypoproliferation; normal folate -Lyme panel considering report of rash on arm, pancytopenia, and conduction block -defer additional infectious workup to infectious disease full code ELOS: 2-3 nights
[2020-04-07 18:07] VITALS: BMI 31.6
[2020-04-07] MEDS: HumaLOG 300 UNITS/3 ML VIAL SC PRN (18:24)
[2020-04-07] MEDS: Atorvastatin Calcium 40 MG TAB PO SCH (20:47)
[2020-04-07] MEDS: Acetaminophen 325 MG TAB PO PRN (20:48)
[2020-04-07] MEDS: Insulin Glargine 30 UNITS in Pre-Filled Syringe 1 EACH SC SCH (22:13)
--- NOTE | 2020-04-07 22:36 | CON ---
DATE OF CONSULTATION: 04/07/2020 REASON FOR CONSULTATION: AV block. PRIMARY CARE PROVIDER: Dr. Hampton. HISTORY OF PRESENT ILLNESS: This is an 80-year-old gentleman who presented with loss of taste and concern for COVID infection as well as general malaise. His COVID test was negative. He has a medical history significant for coronary artery disease with prior stenting, hypertension, hyperlipidemia, type 2 diabetes, and anemia. He was afebrile on presentation, temperature 101.7. He was preparing for discharge potentially today, but on telemetry was noted to have occasional AV block prompting EP consultation for potential need for pacemaker. Mr. Martinez feels well overall. He is much relieved to learn that he does have COVID. He does not have any heart racing, palpitations, chest pain, pressure, syncope, near syncope, stroke, or stroke-like symptoms. He has no history of irregular rhythms that he is aware of and does not struggle with dizziness either. PAST MEDICAL HISTORY: 1. Coronary artery disease with prior stent. 2. Hypertension. 3. Hyperlipidemia. 4. Type 2 diabetes. 5. Anemia. 6. Chronic kidney disease, stage 4. 7. Iron deficiency anemia. ALLERGIES: NO KNOWN DRUG ALLERGIES. HOME MEDICATIONS: Include: 1. Actos 15 mg daily. 2. Nitrofurantoin 100 mg q.i.d. 3. Imodium as needed. 4. Iron b.i.d. 5. Trulicity weekly. 6. Carvedilol 25 mg b.i.d. 7. Aspirin 81 mg daily. 8. Lisinopril 20 mg daily. 9. Plavix 75 mg daily. 10. Protonix 40 mg b.i.d. 11. Imdur 60 mg daily. 12. Lantus as directed. 13. Lasix 20 mg daily. 14. Atorvastatin calcium 40 mg at bedtime. FAMILY HISTORY: Noncontributory. SOCIAL HISTORY: Negative for tobacco or illicit drug use or alcohol. 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 Ambulates with a cane. Lives with his daughter. OBJECTIVE: VITAL SIGNS: Temperature 97.6, pulse 60, blood pressure 148/65, respirations are 15, oxygen is 97% on room air. GENERAL: The patient is alert, oriented. Speech is clear. Affect is appropriate. He is in no apparent distress. Resting comfortably in the bed. HEENT: Normocephalic and atraumatic. Slightly hard of hearing. NECK: Supple without jugular venous distention. His trachea is midline. There is no lymphadenopathy. HEART: His heart rate is with a crisp S1 and S2. PMI is nondisplaced. LUNGS: Clear to auscultation bilaterally without wheezes, crackles, or rhonchi. ABDOMEN: Soft, nontender without palpable masses. Hepatojugular reflux is negative. EXTREMITIES: Warm and dry to touch. Well perfused without clubbing, cyanosis, or edema. NEUROLOGIC: Grossly intact and nonfocal. Gait was not assessed. LABORATORY DATA: WBC 3.7, hemoglobin 10.6, platelet count 117. Chemistry: Potassium 3.8, creatinine 1.47, magnesium 1.8, TSH 4.17. DATABASE: Telemetry and EKG shows sinus rhythm with occasional nonconducted PACs as well as a Mobitz second-degree type 1 AV block, typical Wenckebach pattern. IMPRESSION: 1. Second-degree Mobitz type 1. 2. Premature atrial complexes occasionally nonconducted. 3. Chronic kidney disease stage 4. 4. History of coronary artery disease. 5. Anemia. PLAN AND RECOMMENDATIONS: Mr. Maritnez is a pleasant 80-year-old gentleman, who presented to the hospital with medical problems of fever and concern for COVID. He has since tested negative. He was seen to have AV block on telemetry, which upon review reflects occasional nonconducted PACs with P waves buried in the T-waves followed by second-degree Mobitz type 1. He is asymptomatic with this. At this point, there is no evidence of advanced conduction disease or symptomatic presentation with this arrhythmia. There is no indication for permanent pacemaker. Thank you for allowing me to participate in the care of this patient. He is cleared for discharge by electrophysiology and may follow up in the future, if he has concern for symptomatic arrhythmia issues. Job ID: [id number]
[2020-04-08] MEDS: Clopidogrel Bisulfate 75 MG TAB PO SCH (08:32)
[2020-04-08] MEDS: Aspirin 81 mg Enteric Coated Tablet PO SCH (08:32)
[2020-04-08] MEDS: Doxycycline 100 MG CAP PO SCH (08:32)
[2020-04-08] MEDS: HumaLOG 300 UNITS/3 ML VIAL SC PRN (11:31)
[2020-04-08 16:52] VITALS: BP 156/78; TEMP 98
--- NOTE | 2020-04-08 23:34 | DIS ---
DATE OF ADMISSION: 04/04/2020 DATE OF DISCHARGE: 04/08/2020 HOSPITAL COURSE: Mr. Martinez is an 80-year-old male with medical history of coronary artery disease, hypertension, type 2 diabetes, and chronic anemia, who presented with acute malaise and loss of sense of taste. The patient presented with pancytopenia and elevated inflammatory markers. COVID was negative, as was the viral panel. Infectious Disease was consulted and additional infectious disease studies were carried out. The patient also developed Mobitz type 1 block and reportedly had a rash on his arm, so doxycycline was started pending finalization of Infectious Disease. On the day of discharge, the patient was feeling well and had no complaints. PHYSICAL EXAMINATION: VITAL SIGNS: 156/78, pulse 65, respiratory rate 18, oxygen saturation 96% on room air, temperature 98. GENERAL: Lying comfortably in bed. Awake and alert. HEENT: No JVD. HEART: Regular rate and rhythm. No murmurs, gallops, or rubs. Occasional skipped beats (on telemetry has occasional Mobitz type 1 and occasional nonconducting PACs). RESPIRATORY: Clear to auscultation bilaterally. No wheezing, rales or rhonchi. GASTROINTESTINAL: Soft, nontender, nondistended. Normal bowel sounds. SKIN: No rash. PSYCHIATRIC: Proper mood and affect. Alert and oriented x3. MEDICATION LIST: New medications: Doxycycline 100 mg p.o. b.i.d. pending followup appointment with Infectious Disease in 2 weeks. Continued medications: 1. Lisinopril. 2. Pantoprazole. 3. Carvedilol. 4. Atorvastatin. 5. Aspirin. 6. Ferrous gluconate. 7. Trulicity. 8. Clopidogrel. 9. Pioglitazone. 10. Glargine. 11. Loperamide p.r.n. 12. Isosorbide mononitrate. Modified medications: Lasix was changed from 20 mg p.o. scheduled daily to p.r.n., lower extremity swelling. Discontinued medications: Nitrofurantoin. Job ID: [id number]
[2020-04-09 11:15] LABS: Lyme IgG/IgM AB <0.91 ISR (0.00-0.90)
[2020-04-09 13:15] LABS: Bartonella henselae IgG Negative titer (Neg:<1:320); Bartonella henselae IgM Negative titer (Neg:<1:100); Bartonella quintana IgG Negative titer (Neg:<1:320); Bartonella quintana IgM Negative titer (Neg:<1:100)
== END 2020-04-08 17:15 | disposition home or self-care (01) | DRG 809 ==
LOC: ERS 19:37 → UNDOADMOB 21:10 → INTOOBSV 21:10 → 2SW 21:10 → OBSVTOIN 21:10 → ERS 23:19 → UNDODISIN 04-04 19:40 → 2NO 04-04 21:16 → T4-A 04-07 14:44
PROVIDERS: ADMIT Internal Medicine; ATTEND Internal Medicine
DX: D61.818 Other pancytopenia (principal); N18.4 Chronic kidney disease, stage 4 (severe); R65.10 Systemic inflammatory response syndrome (SIRS) of non-infectious origin without acute organ dysfunction; N17.9 Acute kidney failure, unspecified; I44.1 Atrioventricular block, second degree; I49.1 Atrial premature depolarization; I25.10 Atherosclerotic heart disease of native coronary artery without angina pectoris; E78.5 Hyperlipidemia, unspecified; E11.65 Type 2 diabetes mellitus with hyperglycemia; R43.9 Unspecified disturbances of smell and taste; E11.22 Type 2 diabetes mellitus with diabetic chronic kidney disease; I12.9 Hypertensive chronic kidney disease with stage 1 through stage 4 chronic kidney disease, or unspecified chronic kidney disease; D50.0 Iron deficiency anemia secondary to blood loss (chronic); K21.9 Gastro-esophageal reflux disease without esophagitis; Z20.828 Contact with and (suspected) exposure to other viral communicable diseases; Z79.82 Long term (current) use of aspirin; Z95.5 Presence of coronary angioplasty implant and graft; Z79.899 Other long term (current) drug therapy; Z79.01 Long term (current) use of anticoagulants; Z79.4 Long term (current) use of insulin
CPT/HCPCS: 36415; 36416; 70551; 71046; 71250; 78451; 80048; 82728; 82746; 83735; 84145; 84443; 84484; 85007; 85025; 85027; 85046; 85060; 85379; 85652; 86140; 86611; 86618; 86622; 87633; 87635; 93005; 93970; A9540; J0456; J0696; J1644; J1815; J3490; J7050; U0002; U0003